=== PATIENT | female | born 1990 | race Caucasian/White ===

== ENCOUNTER 2020-05-23 05:44 | Inpatient (IN) ==
[2020-05-23] MEDS ORDERED: CITRIC ACID/SODIUM CITRATE 30 ML UDCUP PO ONE (05:56)
[2020-05-23] MEDS ORDERED: FAMOTIDINE 20 MG/2 ML VIAL IV ONE (05:56)
[2020-05-23] MEDS ORDERED: ceFAZolin 3,000 MG in SYRINGE 1 EACH IV ONE (06:00)
[2020-05-23] MEDS ORDERED: PROMETHAZINE 25 MG/1 ML VIAL IM ONE (06:01)
[2020-05-23] MEDS ORDERED: ONDANSETRON 4 MG/2 ML VIAL IV ONE (06:01)
[2020-05-23] MEDS ORDERED: diphenhydrAMINE 50 MG/1 ML VIAL IV PRN (06:01)
[2020-05-23] MEDS ORDERED: hydrOXYzine HCL 25 MG/1 ML VIAL IM PRN (06:01)
[2020-05-23] MEDS ORDERED: LACTATED RINGERS 1,000 ML IV ONE (06:01)
[2020-05-23] MEDS: LACTATED RINGERS 1,000 ML IV SCH ×2 (06:16→18:30)
[2020-05-23 06:19] LABS: Basophils % 0.3 % (0.0-0.8); Eosinophils # 0.1 10*3/uL (0.0-0.87); Eosinophils % 1.3 % (0.00-10.9); Hematocrit 34.4 VOL% (35.7-47.0); Hemoglobin 11.7 GM/DL (12.0-16.0); Immature Granulocytes % 0.6 %; Immature Granulocytes Absolute 0.07 #; Lymphocytes # 1.4 10*3/uL (1.4-4.0); Mean Corpuscular Volume 92.7 FL (87-102); Mean Platelet Volume 9.7 FL (9.6-12.0); Monocytes % 5.6 % (1.7-12.7); Neutrophils % 79.2 % (38.7-73.9); Platelet Count 177 T/CUMM (130-400); Red Blood Count 3.71 MC/CUMM (3.8-5.5); Red Cell Distribution Width 13.2 % (9.3-17.3)
[2020-05-23 07:02] LABS: Alanine Aminotransferase 15 U/L (13-56); Albumin 2.3 G/DL (3.4-5.0); Alkaline Phosphatase 111 U/L (45-117); Aspartate Amino Transferase 15 U/L (0-37); Bilirubin,Total < 0.39 MG/DL (0.2-1.0); Blood Urea Nitrogen 5 MG/DL (7-18); Calcium 8.7 MG/DL (8.5-10.1); Estimated Glom Filtration Rate 171 ML/MIN; Glucose 95 MG/DL (74-106); Osmolality,Calculated 275.4 MOS/KG (273-304); Total Protein 6.4 G/DL (6.4-8.3)
[2020-05-23] MEDS ORDERED: OXYTOCIN/LR 20 UNIT/1,000 ML BAG IV ONE ×2 (07:09→08:59)
[2020-05-23 07:10] LABS: INR 0.9; PT Patient Result 9.6 SECS (9.8-11.9); Partial Thromboplastin Time 27.1 SECS (23.9-33.8)
[2020-05-23] MEDS ORDERED: ACETAMINOPHEN 1,000 MG/100 ML VIAL IV ONE (08:16)
[2020-05-23 08:31] LABS: Cord Venous Blood PCO2 45.1 MMHG; Cord Venous Blood PO2 36.4
[2020-05-23 08:42] LABS: Apearance,Urine CLEAR (Clear); Bilirubin,Urine Negative (Negative); Blood, Urine Negative (Negative); Glucose,Urine (UA) Negative (Negative); Ketones,Urine Negative (Negative); Mucus,Urine Occasional /LPF (Occasional); Nitrite,Urine Negative (Negative); Protein,Urine Negative; Urine Color Straw (Yellow); Urine Specific Gravity 1.008 (1.001-1.035); Urine Urobilinogen < 2.0 EU/DL (0.2-1.0); WBC,Urine <1 /HPF (0-6)
[2020-05-23] MEDS ORDERED: BISACODYL 10 MG SUPP RECTAL PRN (08:59)
[2020-05-23] MEDS ORDERED: MEASLES/MUMPS/RUBELLA VACCINE 0.5 ML VIAL SUBCUT ONE (08:59)
[2020-05-23] MEDS ORDERED: oxyCODONE/ACETAMINOPHEN 5-325 MG TABLET PO PRN (08:59)
[2020-05-23] MEDS ORDERED: DIPH/TET/ACEL PERT BOOSTER VACCINE 0.5 ML VIAL IM ONE (08:59)
[2020-05-23] MEDS ORDERED: ONDANSETRON 4 MG/2 ML VIAL IV PRN (08:59)
[2020-05-23] MEDS ORDERED: RHO(D) IMMUNE GLOBULIN 300 MCG SYRINGE IM ONE (08:59)
[2020-05-23] MEDS ORDERED: HYDROCORTISONE 2.5% RECTAL CREAM 30 GM TUBE TOP PRN (08:59)
[2020-05-23] MEDS ORDERED: BENZOCAINE 20%/MENTHOL 0.5% SPRAY 56 GM CAN TOP PRN (08:59)
[2020-05-23] MEDS ORDERED: LANOLIN 50% CREAM 0.3 OZ TUBE TOP PRN (08:59)
[2020-05-23] MEDS ORDERED: WITCH HAZEL PADS 100/JAR TOP PRN (08:59)
[2020-05-23] MEDS ORDERED: ACETAMINOPHEN 325 MG TABLET PO PRN (08:59)
[2020-05-23] MEDS ORDERED: MIDAZOLAM 2 MG/2 ML VIAL ONE (09:10)
[2020-05-23] MEDS ORDERED: fentaNYL 100 MCG/2 ML VIAL ONE (09:10)
[2020-05-23] MEDS ORDERED: PHENYLEPHRINE 1 MG/10 ML SYRINGE IV ONE (09:10)
[2020-05-23] MEDS ORDERED: MORPHINE 10 MG/10 ML VIAL ONE (09:11)
[2020-05-23] MEDS ORDERED: BUPIVACAINE SPINAL 0.75% 2 ML AMP SPINAL ONE (09:12)
[2020-05-23] MEDS ORDERED: KETOROLAC 30 MG/1 ML VIAL ONE (09:12)
[2020-05-23] MEDS ORDERED: HYDROmorphone 2 MG/1 ML VIAL IV PRN (11:11)
[2020-05-23] MEDS: KETOROLAC 30 MG/1 ML VIAL IV SCH ×2 (16:04→21:48)
[2020-05-23] MEDS: ceFAZolin 1,000 MG in SYRINGE 1 EACH IV SCH ×2 (16:07→23:28)
[2020-05-23] MEDS: ACETAMINOPHEN 500 MG TABLET PO SCH ×2 (16:07→21:48)
[2020-05-23] MEDS: DOCUSATE SODIUM 100 MG CAPSULE PO SCH (21:48)
[2020-05-24] MEDS: KETOROLAC 30 MG/1 ML VIAL IV SCH (03:20)
[2020-05-24] MEDS: ACETAMINOPHEN 500 MG TABLET PO SCH (03:20)
[2020-05-24 05:13] LABS: Basophils % 0.3 % (0.0-0.8); Eosinophils # 0.1 10*3/uL (0.0-0.87); Eosinophils % 0.5 % (0.00-10.9); Hematocrit 26.7 VOL% (35.7-47.0); Immature Granulocytes % 0.6 %; Immature Granulocytes Absolute 0.07 #; Lymphocytes # 1.3 10*3/uL (1.4-4.0); Lymphocytes % 11.3 % (21.3-54.2); Mean Corpuscular HGB Conc 33.7 GM/DL (32-36); Mean Corpuscular Volume 95.4 FL (87-102); Mean Platelet Volume 9.7 FL (9.6-12.0); Monocytes % 5.1 % (1.7-12.7); Neutrophils % 82.2 % (38.7-73.9); Platelet Count 142 T/CUMM (130-400); Red Cell Distribution Width 13.3 % (9.3-17.3); White Blood Count 11.6 T/CUMM (4-12)
[2020-05-24] MEDS: oxyCODONE/ACETAMINOPHEN 5-325 MG TABLET PO PRN ×2 (09:29→19:40)
[2020-05-24] MEDS: DOCUSATE SODIUM 100 MG CAPSULE PO SCH ×2 (09:29→20:04)
[2020-05-24] MEDS: IBUPROFEN 800 MG TABLET PO PRN ×2 (09:30→19:40)
[2020-05-24] MEDS: FUROSEMIDE 40 MG TABLET PO SCH (17:05)
[2020-05-24] MEDS: NEOMYCIN/POLYMYXIN/BACITRACIN OINT 0.9 GM PACK TOP SCH (20:04)
[2020-05-25] MEDS: IBUPROFEN 800 MG TABLET PO PRN ×2 (06:22→11:54)
[2020-05-25 08:04] VITALS: BP 130/69
[2020-05-25] MEDS: DOCUSATE SODIUM 100 MG CAPSULE PO SCH (08:43)
[2020-05-25] MEDS: FUROSEMIDE 40 MG TABLET PO SCH (08:44)
[2020-05-25] MEDS: NEOMYCIN/POLYMYXIN/BACITRACIN OINT 0.9 GM PACK TOP SCH (08:44)
[2020-05-25] MEDS: oxyCODONE/ACETAMINOPHEN 5-325 MG TABLET PO PRN (11:55)
== END 2020-05-25 13:45 | disposition home or self-care (01) | DRG 788 ==
LOC: N.LD 05:44 → N.OB 15:45
PROVIDERS: ADMIT Specialist; ATTEND Specialist
PROC: LDCSECT (ICD-10-PCS; 2020-05-23 07:30)